=== PATIENT | male | born 1960 ===

== ENCOUNTER 2020-09-23 16:27 | Emergency (ER) | payer SELFPAY ==
[~2020-09-23] VITALS: Ht 177.8 cm; Wt 81.6 kg
[2020-09-23 16:32] VITALS: BP 154/84
[2020-09-23] MEDS ORDERED: NALOXONE HCL 1MG/ML 2ML SYRINGE IV ONE (16:45)
[2020-09-23] MEDS ORDERED: SODIUM CHLORIDE 0.9% 1,000 ML IV ONE ×2 (16:45)
[2020-09-23] MEDS ORDERED: THIAMINE 100mg/ml INJ (200mg/2ml VIAL) IV ONE (16:45)
== END 2020-09-23 18:27 | disposition left against medical advice (07) ==
LOC: EDBD 16:27 → ER 16:27
DX: G93.41 Metabolic encephalopathy (principal)
CPT/HCPCS: 70450; 71045; 93005